=== PATIENT | male | born 1965 | race Caucasian/White ===

== ENCOUNTER 2017-10-04 10:43 | Emergency (ER) | payer MEDICAID, OTHER ==
[2017-10-04 11:12] VITALS: BP 135/84; PULSE 79; RESP 18; TEMP 97.9; O2SAT 98
--- NOTE | 2017-10-04 12:11 | C.PDOC ---
History Of Present Illness 51-year-old male, PMHx includes Hypertension presents to the emergency department requesting refill for Amlodipine prescription. Last dose was yesterday. Patient denies any physical complaints at this time. Time Seen by Provider: 10/04/17 12:02 Chief Complaint (Nursing): Med Refill History Per: Patient History/Exam Limitations: no limitations Past Medical History Reviewed: Historical Data, Nursing Documentation, Vital Signs Vital Signs: Last Vital Signs Temp 97.9 F 10/04/17 11:10 Pulse 79 10/04/17 11:10 Resp 18 10/04/17 11:10 BP 135/84 10/04/17 11:10 Pulse Ox 98 10/04/17 12:15 - Medical History PMH: HTN Family History: States: No Known Family Hx - Social History Hx Tobacco Use: Yes (heavy smoker) Hx Alcohol Use: No Hx Substance Use: No - Immunization History Hx Tetanus Toxoid Vaccination: No Hx Influenza Vaccination: No Hx Pneumococcal Vaccination: No Review Of Systems Constitutional: Negative for: Fever Cardiovascular: Negative for: Chest Pain Respiratory: Negative for: Shortness of Breath Neurological: Negative for: Weakness, Headache, Dizziness Physical Exam - Physical Exam Appears: Well, Non-toxic, No Acute Distress Skin: Normal Color, Warm, Dry, No Rash Head: Normacephalic Eye(s): bilateral: PERRL Nose: No Flaring Oral Mucosa: Moist, No Drooling Throat: No Erythema, No Drooling Neck: Supple Cardiovascular: Rhythm Regular, No Murmur, No JVD Respiratory: No Decreased Breath Sounds, No Accessory Muscle Use, No Stridor, No Wheezing Gastrointestinal/Abdominal: Soft, No Tenderness Back: Normal Inspection Extremity: Normal ROM, No Deformity, No Swelling Neurological/Psych: Oriented x3, Normal Speech ED Course And Treatment O2 Sat by Pulse Oximetry: 98 (RA) Pulse Ox Interpretation: Normal Progress Note: On re-eval, pt is afebrile, hemodynamicaly stable. NOn-toxic. PulsEOx 98% RA. neck: Supple, (-) JVD, (-) carotid bruits B/L. Lungs: CTA B/L , BS equal B/L. CVS: (+)S1S2, reg. Neuorlogicaly intact. Pt advised . ref. to f/u with PMD in 2-3 days for re-eval,. return to ED if any worsening or new changes. Disposition Counseled Patient/Family Regarding: Diagnosis, Need For Followup - Disposition Referrals: [facility] [Outside] Disposition: HOME/ ROUTINE Disposition Time: 12:08 Condition: STABLE Prescriptions: amLODIPine [Norvasc] 10 mg PO DAILY #30 tab Instructions: Hypertension (ED), Medicine Refill (ED) Forms: [employer] (Slovenian) - Clinical Impression Clinical Impression: Hypertension, Medication refill - Scribe Statement The provider has reviewed the documentation as recorded by the Scribe (Westley Matamoros) All medical record entries made by the Scribe were at my direction and personally dictated by me. I have reviewed the chart and agree that the record accurately reflects my personal performance of the history, physical exam, medical decision making, and the department course for this patient. I have also personally directed, reviewed, and agree with the discharge instructions and disposition.
== END 2017-10-04 12:13 | disposition home or self-care (01) ==
LOC: C.ER 10:43
DX: Z76.0 Encounter for issue of repeat prescription (principal); I10 Essential (primary) hypertension; F17.210 Nicotine dependence, cigarettes, uncomplicated

== ENCOUNTER 2018-10-19 09:30 | Emergency (ER) | payer MEDICAID ==
--- NOTE | 2018-10-19 09:58 | C.PDOC ---
History Of Present Illness 53 year old male patient presents to the emergency room complaining of left lower quadrant abdominal pain for 3 days. Associated symptoms includes bloating and constipation. Patient has constipation but reports he has had it for 1 week. He states typically goes couple days as far as one week. Patient denies dysuria, abdominal cramps, nausea, vomiting, groin pain and fever. Time Seen by Provider: 10/19/18 09:49 Chief Complaint (Nursing): Abdominal Pain History Per: Patient History/Exam Limitations: no limitations Onset/Duration Of Symptoms: Days (x3) Current Symptoms Are (Timing): Still Present Location Of Pain/Discomfort: LLQ Past Medical History Reviewed: Historical Data, Nursing Documentation, Vital Signs Vital Signs: Last Vital Signs Temp 98.8 F 10/19/18 09:38 Pulse 95 H 10/19/18 09:38 Resp 118 H 10/19/18 09:38 BP 138/88 10/19/18 09:38 Pulse Ox 98 10/19/18 09:38 - Medical History PMH: HTN Family History: States: Unknown Family Hx - Social History Hx Tobacco Use: Yes (heavy smoker) Hx Alcohol Use: Yes Hx Substance Use: No - Immunization History Hx Tetanus Toxoid Vaccination: No Hx Influenza Vaccination: No Hx Pneumococcal Vaccination: No Review Of Systems Constitutional: Positive for: Other (abdominal bloating). Negative for: Fever Gastrointestinal: Positive for: Abdominal Pain (LLQ), Constipation. Negative for: Nausea, Vomiting, Other (abdominal cramping ) Genitourinary: Negative for: Dysuria, Scrotal Pain, Penile Pain Physical Exam - Physical Exam Appears: Well, Non-toxic, No Acute Distress Skin: Warm, Dry, No Rash Head: Atraumatic, Normacephalic Eye(s): bilateral: Normal Inspection, EOMI Oral Mucosa: Moist Neck: Normal ROM Chest: Symmetrical Cardiovascular: Rhythm Regular, No Murmur Respiratory: Normal Breath Sounds, No Rales, No Rhonchi, No Wheezing Gastrointestinal/Abdominal: Bowel Sounds (active), Soft, Tenderness (mild LLQ tenderness), No Mass, No Distention, No Guarding, No Rebound Back: No CVA Tenderness Extremity: Bilateral: Atraumatic, Normal Color And Temperature Neurological/Psych: Oriented x3, Normal Speech Gait: Steady ED Course And Treatment O2 Sat by Pulse Oximetry: 98 (RA) Pulse Ox Interpretation: Normal - Other Rad obstructive series X-Ray: Read By Radiologist Interpretation: Accession No. : [id number]. Patient Name / ID : ARIC PARIS / [id number]. Exam Date : 10/19/2018 10:03:18 ( Approved ). Study Comment : Sex / Age : M / 53Y. Creator : Nasrene Chacon MD. Dictator : Nasreen Chacon MD. Club Manager : Load Test Mechanic : Nasreen Chacon MD. Approver2 : Report Date : 10/19/2018 11:14:56. My Comment : . Date of service: 10/19/2018. PROCEDURE: Radiographs of the chest and abdomen (obstructive series). HISTORY: Abd pain, constipation x1 wk. COMPARISON: No prior. TECHNIQUE: AP radiograph of the chest, with upright and supine radiographs of the abdomen. FINDINGS: CHEST: Lungs: Clear. Cardiovascular: Normal size heart. No pulmonary vascular congestion. No aortic atherosclerotic calcification present. Pleura: No pleural fluid. No pneumothorax. Other findings: None. ABDOMEN AND PELVIS: Bowel: There is moderate amount of stool in the colon. No evidence of mechanical obstruction. Free air: None. Bones: Unremarkable. Other findings: None. IMPRESSION: Constipation. No evidence of bowel obstruction. Medical Decision Making Medical Decision Making: Impression: Constipation and bloating with abdominal pain Plans: -- obstructive series XRay shows moderate fecal retention with normal gas pattern, no SBO. Simethicone PO ordered for gas relief. Patient remained afebrile sitting on stretcher in no acute distress. Abdomen is soft without guarding to suggest any surgical pathology. He denies any pain to groin. Discussed xray result and the plan for discharge with Rx to help with gas and constipation. Patient expressed understanding and felt comfortable going home. Disposition Counseled Patient/Family Regarding: Diagnosis, Need For Followup, Rx Given - Disposition Referrals: [facility] [Outside] [facility] [Outside] [facility] [Outside] Disposition: HOME/ ROUTINE Disposition Time: 10:28 Condition: STABLE Additional Instructions: Your xray shows constipation and gas. Prescriptions sent to [facility] pharmacy Take Simethicone as needed for gas discomfort Take Colace daily to help soften stool Drink bottle of magnesium citrate to help with bowel movement. Take Miralax for constipation as needed. Follow up with your doctor Return to ER if you develop any fever, increased abdominal pain, vomiting, blood in stool or other concern Prescriptions: Docusate [Colace] 100 mg PO TID PRN #30 cap PRN Reason: Constipation Magnesium Citrate [Citrate of Mag] 300 ml PO ONCE PRN #1 bottle PRN Reason: Constipation Polyethylene Glycol 3350 [Miralax] 17 gm PO ONCE PRN #1 packet PRN Reason: Constipation Simethicone [Gas Relief] 80 mg PO QID #20 tab.chew Instructions: Constipation, Adult (DC), Gas and Bloating (ED) - POA Present On Arrival: None - Clinical Impression Clinical Impression: Constipation, Abdominal colic - PA / NATURAL HISTORY COLLECTIONS CURATOR / Resident Statement MD/ has reviewed & agrees with the documentation as recorded. - Scribe Statement The provider has reviewed the documentation as recorded by the Carolina Arenas Do All medical record entries made by the Carolina were at my direction and personally dictated by me. I have reviewed the chart and agree that the record accurately reflects my personal performance of the history, physical exam, medical decision making, and the department course for this patient. I have also personally directed, reviewed, and agree with the discharge instructions and disposition.
[2018-10-19] MEDS ORDERED: Simethicone 80 mg Chewtab PO STA (10:25)
[2018-10-19 11:14] VITALS: BP 127/83; PULSE 74; RESP 20; TEMP 98.6
--- NOTE | 2018-10-19 11:18 | RAD ---
Date of service: 10/19/2018 PROCEDURE: Radiographs of the chest and abdomen (obstructive series) HISTORY: Abd pain, constipation x1 wk COMPARISON: No prior. TECHNIQUE: AP radiograph of the chest, with upright and supine radiographs of the abdomen. FINDINGS: CHEST: Lungs: Clear. Cardiovascular: Normal size heart. No pulmonary vascular congestion. No aortic atherosclerotic calcification present Pleura: No pleural fluid. No pneumothorax. Other findings: None. ABDOMEN AND PELVIS: Bowel: There is moderate amount of stool in the colon. No evidence of mechanical obstruction. Free air: None. Bones: Unremarkable. Other findings: None. IMPRESSION: Constipation. No evidence of bowel obstruction.
[2018-10-19 11:22] VITALS: O2SAT 98
== END 2018-10-19 11:08 | disposition home or self-care (01) ==
LOC: C.ER 09:30
DX: K59.00 Constipation, unspecified (principal); R10.84 Generalized abdominal pain